=== PATIENT | male | born 1975 | race African-American/Black ===

== ENCOUNTER 2020-12-20 13:40 | Emergency (ER) | payer BC ==
[~2020-12-20] VITALS: Ht 182.9 cm; Wt 97.5 kg
[2020-12-20] MEDS ORDERED: LIDOCAINE HCL 2% LOCAL 20 ML VIAL ONE (14:29)
[2020-12-20] MEDS ORDERED: LIDOCAINE HCL 1% LOCAL INJ 20 ML VIAL INJ ONE (15:00)
== END 2020-12-20 15:08 | disposition home or self-care (01) ==
LOC: ER 14:29
DX: L03.011 Cellulitis of right finger (principal)
CPT/HCPCS: 10060; 99283; J2001